=== PATIENT | female | born 1950 | race Caucasian/White ===

== ENCOUNTER 2016-04-30 10:54 | Day surgery (SDC) | payer MEDICARE, OTHER ==
[~2016-04-30 10:54] MED LIST: Cefuroxime 10 MG/ML SYRINGE EYERT SCH; Lidocaine 1% PF 2 ML SDV INJECT SCH; Pilocarpine 4% Ophth Soln 15 ML Bot EYERT SCH; Proparacaine 0.5% Ophth Soln 15 ML Bottle EYEBOTH SCH; Tetracaine 0.5% 2 ML Bottle EYERT SCH
[2016-04-30] MEDS: Polymyxin B/Trimethoprim 10 ML Bottle EYERT SCH ×3 (12:11→13:48)
[2016-04-30] MEDS: Apraclonidine 0.5% Ophth Soln 5 ML Bot EYERT SCH ×3 (12:18→13:48)
[2016-04-30] MEDS: Phenylephrine 2.5% Ophth Soln 2 ML Bot EYERT SCH ×5 (12:23→13:29)
--- NOTE | 2016-04-30 12:25 | PCM.PREANE ---
Preanesthetic Assessment - Anesthesia/Transfusion/Family Hx Anesthesia History: Prior Anesthesia Without Reaction Type of Anesthesia Reaction: Unknown Family History of Anesthesia Reaction: No Transfusion History: Unknown Type of Transfusion Reactions: Reports: Unknown - Review of Systems General: No Symptoms Pulmonary: No Symptoms Cardiovascular: No Symptoms, Other (HTN) Gastrointestinal: No symptoms Neurological: No Symptoms Other: Reports: None - Physical Assessment NPO Status Date: 04/30/16 NPO Status Time: 06:00 Pulse: 73 O2 Sat by Pulse Oximetry: 98 Respiratory Rate: 16 Blood Pressure: 141/97 Vital Signs: Last Vital Signs Temp 36.2 C 04/30/16 11:55 Pulse 73 04/30/16 11:55 Resp 16 04/30/16 11:55 BP 141/97 H 04/30/16 11:55 Pulse Ox 98 04/30/16 11:55 Height: 1.6 m Weight: 115.666 kg ASA Class: 2 Mental Status: Alert & Oriented x3 Dentition: Reports: Normal Dentition ROM/Head Extension: Full Lungs: Clear to auscultation, Normal respiratory effort Cardiovascular: Regular Rate, Regular Rhythm - Allergies Allergies/Adverse Reactions: Allergies Allergy/AdvReac Type Severity Reaction Status Date / Time No Known Allergies Allergy Verified 04/29/16 13:42 - Blood Blood Available: No Product(s) Available: None - Anesthesia Plan Pre-Op Medication Ordered: None Med Last Dose Date: 04/30/16 Med Last Dose Time: 06:00 - Acknowledgements Anesthesia Type Planned: MAC Pt an Appropriate Candidate for the Planned Anesthesia: Yes Alternatives and Risks of Anesthesia Discussed w Pt/Guardian: Yes Pt/Guardian Understands and Agrees with Anesthesia Plan: Yes PreAnesthesia Questionnaire - HOME MEDS Home Medications: Home Meds Bisoprolol/Hydrochlorothiazide [Ziac 5-6.25 MG] 1 tab PO DAILY 04/01/16 [History ] Fish Oil/Jean-3 Fatty Acids [Fish Oil 1,000 MG] 1,000 mg PO DAILY 04/01/16 [ History] Furosemide [Furosemide] 20 mg PO DAILY 04/01/16 [History] Losartan [Cozaar] 50 mg PO DAILY 04/01/16 [History] Multivitamins,Ther w-Minerals [Multivitamins with Minerals HP] 1 cap PO DAILY [History] Naproxen Sodium [Aleve] 1 - 2 tab PO Q6H PRN 04/01/16 [History] Simvastatin [Simvastatin] 20 mg PO BEDTIME 04/01/16 [History] cycloSPORINE [Restasis] 1 drop EYEBOTH ASDIRECTED 04/01/16 [History] - CURRENT (IN HOUSE) MEDS Current Meds: Current Medications Apraclonidine HCl (Iopidine 0.5% Ophth Soln) 0 ml EYERT ASDIRECTED BETO Stop: 04/30/16 18:00 Last Admin: 04/30/16 12:18 Dose: 1 drop Cefuroxime Sodium (Zinacef) 0 mg EYERT ASDIRECTED BETO Stop: 04/30/16 18:00 Lidocaine HCl (Xylocaine-Mpf 1%) 2 ml INJECT ASDIRECTED BETO Stop: 04/30/16 18:00 Phenylephrine HCl (Te-Synephrine 2.5% Ophth Soln) 0 ml EYERT ASDIRECTED BETO Stop: 04/30/16 18:00 Pilocarpine HCl (Pilocar 4% Ophth Soln) 0 ml EYERT ASDIRECTED BETO Stop: 04/30/16 18:00 Polymyxin/Trimethoprim Sulfate (Polytrim Ophth Soln) 0 ml EYERT ASDIRECTED BETO Stop: 04/30/16 18:00 Last Admin: 04/30/16 12:11 Dose: 1 drop Proparacaine HCl (Proparacaine 0.5% Ophth Soln) 0 ml EYEBOTH ASDIRECTED BETO Stop: 04/30/16 18:00 Tetracaine (Pontocaine 0.5% Ophth Drops) 0 ml EYERT ASDIRECTED BETO Stop: 04/30/16 18:00 Tropicamide (Mydriacyl 1% Ophth Soln) 0 ml EYERT ASDIRECTED BETO Stop: 04/30/16 18:00 Preanesthetic Assessment - ANESTHESIA/TRANSFUSION/FAMILY HX Anesthesia/Transfusion History: Prior Anesthesia Type of Anesthesia Reaction: Reports: Unknown Family History of Anesthesia Reaction: No Type of Transfusion Reactions: Reports: Unknown - PHYSICAL ASSESSMENT O2 Sat by Pulse Oximetry: 98 RR: 16 Vital Signs: Last Vital Signs Temp 36.2 C 04/30/16 11:55 Pulse 73 04/30/16 11:55 Resp 16 04/30/16 11:55 BP 141/97 H 04/30/16 11:55 Pulse Ox 98 04/30/16 11:55 Height: 1.6 m Weight: 115.666 kg NPO Status Date: 04/30/16 NPO Status Time: 06:00 - ALLERGIES Allergies/Adverse Reactions: Allergies Allergy/AdvReac Type Severity Reaction Status Date / Time No Known Allergies Allergy Verified 04/29/16 13:42
--- NOTE | 2016-04-30 13:52 | PCM48HPAN ---
Post Anesthesia Note - EVALUATION WITHIN 48HRS OF ANESTHETIC Vital Signs in Normal Range: Yes Patient Participated in Evaluation: Yes Respiratory Function Stable: Yes Airway Patent: Yes Cardiovascular Function Stable: Yes Hydration Status Stable: Yes Pain Control Satisfactory: Yes Nausea and Vomiting Control Satisfactory: Yes Mental Status Recovered: Yes
[2016-04-30 14:13] VITALS: BP 153/85
== END 2016-04-30 14:00 | disposition home or self-care (01) ==
LOC: JD.SDS 10:54
PROVIDERS: ATTEND Ophthalmology
DX: H26.9 Unspecified cataract (principal); I10 Essential (primary) hypertension; Z98.890 Other specified postprocedural states; Z96.649 Presence of unspecified artificial hip joint; Z79.899 Other long term (current) drug therapy
CPT/HCPCS: 66984; A9270; C1780; J0697

== ENCOUNTER 2021-10-27 11:35 | Emergency (ER) | payer MEDICARE, OTHER ==
[2021-10-27] MEDS ORDERED: Sodium Chloride 0.9% 10 ML Syringe FLUSH PRN (11:57)
[2021-10-27] MEDS ORDERED: Sodium Chloride 0.9% 1,000 ML IV ONE ×2 (11:58→13:25)
[2021-10-27 12:49] LABS: CORONAVIRUS COVID-19 NAA NEGATIVE (NEGATIVE)
[2021-10-27 13:00] LABS: ESTIMATED GFR 54 mL/min (>60)
[2021-10-27] MEDS ORDERED: Potassium Chloride 20 MEQ Tab.ER PO ONE (13:25)
[2021-10-27] MEDS ORDERED: Magnesium Sulfate/Water 2 GM in Premix Bag 1 BAG IV ONE (13:25)
[2021-10-27 17:33] VITALS: BP 137/58; PULSE 74
== END 2021-10-27 17:31 | disposition home or self-care (01) ==
LOC: JD.ED 11:35
DX: E83.42 Hypomagnesemia (principal); E87.6 Hypokalemia; R74.02 Elevation of levels of lactic acid dehydrogenase [LDH]; E78.00 Pure hypercholesterolemia, unspecified; I10 Essential (primary) hypertension; Z79.899 Other long term (current) drug therapy; Z86.16 Personal history of COVID-19; Z20.822 Contact with and (suspected) exposure to COVID-19
CPT/HCPCS: 0240U; 36415; 71045; 80053; 81001; 83605; 83735; 83880; 84484; 85025; 85610; 85730; 87040; 93005; 96361; 96365; 96366; 99285; A9270; J3475; J3490; J7030; 93010; 99284